=== PATIENT | male | born 1960 | race Caucasian/White ===

== ENCOUNTER 2020-09-13 09:57 | Day surgery (SDC) | payer OTHER ==
[2020-09-11 16:56] LABS: CREATININE 1.1 mg/dL (0.5-1.5); POTASSIUM 4.4 mmol/L (3.5-5.1)
[2020-09-12 14:42] VITALS: BP 111/60
[2020-09-13] VITALS (18 sets, daily range): BP systolic 112–141; BP diastolic 60–77
[~2020-09-13] VITALS: Ht 188 cm; Wt 109.3 kg
[~2020-09-13 09:57] MED LIST: CEFTRIAXONE SODIUM 1 GM IVP ONE; EZET10TA48 PO; INSU100I15 SQ; INSU100I26 SQ; LEVO50CA4 PO; LISI-617 PO; METF-444 PO; ROSU40TA21 PO; TAMS-1 PO
[2020-09-13] MEDS ORDERED: SODIUM CHLORIDE 0.9% 1000ML 1,000 ML IV ONE (10:22)
[2020-09-13] MEDS ORDERED: CEFTRIAXONE SODIUM 1 GM ONE (10:22)
[2020-09-13 10:47] LABS: BASOPHILS % (AUTO) 0.7 % (0.0-5.0); EOSINOPHILS % (AUTO) 5.2 % (0.0-8.0); HEMATOCRIT 38.5 % (42-54); LYMPHOCYTES % (AUTO) 27.9 % (21.0-51.0); MEAN CORPUSCULAR HEMOGLOBIN 31.3 pg (27.0-33.0); MEAN CORPUSCULAR HGB CONC 34.8 g/dL (32.0-36.0); MONOCYTES % (AUTO) 8.8 % (3.0-13.0); PLATELET COUNT (AUTO) 221 K/uL (130-400); RED BLOOD CELL COUNT(AUTO) 4.28 MIL/uL (4.50-6.20); RED CELL DISTRIBUTION WIDTH 12.2 % (11.0-15.5); WHITE BLOOD COUNT (AUTO) 5.4 K/uL (4.8-10.8)
[2020-09-13] MEDS ORDERED: PROPOFOL 10 MG/ML 20ML VIAL IV ONE (12:51)
[2020-09-13] MEDS ORDERED: FENTANYL CITRATE PF 50 MCG/1 ML 2ML VIAL ONE (12:51)
[2020-09-13] MEDS ORDERED: SUCCINYLCHOLINE 200MG/10ML SYR ONE (12:51)
[2020-09-13] MEDS ORDERED: LIDOCAINE PF 2% 5ML ABBOJECT ONE (12:51)
[2020-09-13] MEDS ORDERED: ROCURONIUM 10MG/1ML SYR 10 MG/ML ML ONE (12:56)
[2020-09-13] MEDS ORDERED: MIDAZOLAM HCL 1 MG/ML 2ML VIAL ONE (13:05)
[2020-09-13] MEDS ORDERED: OPIUM/BELLADONNA ALKALOIDS 1 EACH SUPP.RECT RC ONE (13:27)
[2020-09-13] MEDS ORDERED: GLYCOPYRROLATE 1 MG/5 ML SYRINGE ONE (13:44)
[2020-09-13] MEDS ORDERED: NEOSTIGMINE 5MG/5ML SYR IV ONE (13:45)
[2020-09-13] MEDS ORDERED: PHENAZOPYRIDINE HCL 200 MG TABLET ONE (14:17)
[2020-09-13] MEDS ORDERED: KETOROLAC TROMETHAMINE 60 MG/2 ML VIAL ONE (15:18)
[2020-09-13] MEDS ORDERED: KETOROLAC TROMETHAMINE 30MG/ML IM SCH (16:00)
== END 2020-09-13 15:40 | disposition home or self-care (01) ==
LOC: DAH 09:57
PROVIDERS: ATTEND Urology
DX: N13.2 Hydronephrosis with renal and ureteral calculous obstruction (principal); E78.5 Hyperlipidemia, unspecified; I10 Essential (primary) hypertension; E11.9 Type 2 diabetes mellitus without complications; F17.210 Nicotine dependence, cigarettes, uncomplicated; E03.9 Hypothyroidism, unspecified; Z79.4 Long term (current) use of insulin; Z79.899 Other long term (current) drug therapy; Z20.828 Contact with and (suspected) exposure to other viral communicable diseases
CPT/HCPCS: 36415 ×2; 52356; 74420; 80048; 82360; 82948 ×3; 85025; 87426; A4215; A4216; A4221; A4222; A4223; A4600; A4663; A6260; J0330; J0696; J1885; J2001; J2250; J2704; J2710; J3490; J7030; U0003; A4344; C1758; J3010; J7120